=== PATIENT | female | born 1995 | race Caucasian/White ===

== ENCOUNTER 2018-03-25 20:23 | Emergency (ER) | payer MEDICAID ==
[~2018-03-25] VITALS: Ht 180.3 cm; Wt 87.1 kg
[2018-03-25 20:27] VITALS: Ht 180.3 cm; Wt 87.1 kg
[2018-03-25 21:28] VITALS: BP 118/53
== END 2018-03-25 21:28 | disposition home or self-care (01) ==
LOC: ED 20:23
DX: L23.89 Allergic contact dermatitis due to other agents (principal); J45.909 Unspecified asthma, uncomplicated; Z88.0 Allergy status to penicillin

== ENCOUNTER 2018-06-08 15:16 | Emergency (ER) | payer MEDICAID ==
[~2018-06-08] VITALS: Ht 180.3 cm; Wt 84.4 kg
[2018-06-08 15:26] VITALS: Ht 180.3 cm; Wt 84.4 kg
[2018-06-08 20:04] VITALS: BP 114/65
== END 2018-06-08 20:04 | disposition home or self-care (01) ==
LOC: ED 15:16
DX: S16.1XXA Strain of muscle, fascia and tendon at neck level, initial encounter (principal); S13.4XXA Sprain of ligaments of cervical spine, initial encounter; M70.61 Trochanteric bursitis, right hip; J45.909 Unspecified asthma, uncomplicated; Z88.0 Allergy status to penicillin; V48.5XXA Car driver injured in noncollision transport accident in traffic accident, initial encounter; Y93.I9 Activity, other involving external motion; Y92.411 Interstate highway as the place of occurrence of the external cause; Y99.8 Other external cause status